=== PATIENT | male | born 1960 | race Caucasian/White ===

== ENCOUNTER → 2021-11-03 | Outpatient (CLI) | payer BC ==
[2021-11-05 11:54] LABS: Stool Occult Bld Immuno 1 Negative (NEGATIVE)
== END | disposition home or self-care (01) ==
LOC: LAB SHORT 09:00
PROVIDERS: Family Medicine
DX: Z12.11 Encounter for screening for malignant neoplasm of colon (principal); E78.5 Hyperlipidemia, unspecified; R79.9 Abnormal finding of blood chemistry, unspecified
CPT/HCPCS: 82274

== ENCOUNTER → 2024-11-04 | Outpatient (CLI) | payer BC ==
[2024-11-04 14:14] LABS: Stool Occult Blood Guaiac 1 Neg (Neg)
== END | disposition home or self-care (01) ==
LOC: LAB SHORT 09:10 → LAB FUT 10-21 07:50
PROVIDERS: Family Medicine
DX: Z12.5 Encounter for screening for malignant neoplasm of prostate (principal); Z12.11 Encounter for screening for malignant neoplasm of colon; D51.0 Vitamin B12 deficiency anemia due to intrinsic factor deficiency
CPT/HCPCS: 82272

== ENCOUNTER → 2024-12-05 | Outpatient (CLI) | payer BC ==
[2024-12-05 17:55] LABS: Influenza A, PCR NEGATIVE (NEGATIVE); Resp Syncytial Virus, PCR NEGATIVE (NEGATIVE); SARS-Cov-2 (COVID-19) PCR, MMC NEGATIVE (NEGATIVE)
[2024-12-05 21:51] LABS: Influenza B, PCR POSITIVE (NEGATIVE)
== END ==
LOC: LAB SHORT 11:30
PROVIDERS: Family Medicine
DX: R05.9 Cough, unspecified (principal)
CPT/HCPCS: 0241U